=== PATIENT | female | born 1985 | race Caucasian/White ===

== ENCOUNTER 2023-05-12 13:02 | Emergency (ER) | payer BC, SELFPAY ==
[2023-05-12 13:21] VITALS: BP 132/79; PULSE 84; RESP 18; TEMP 36.1; O2SAT 97
--- NOTE | 2023-05-12 14:20 | ED.URI ---
HPI - URI/Sore Throat General Chief Complaint: Upper Respiratory Infection Stated Complaint: cough,bodyaches Time Seen by Provider: 05/12/23 14:10 Source: patient and RN notes reviewed Mode of arrival: ambulatory Limitations: no limitations History of Present Illness HPI Narrative: Patient presents today complaining of cough since last night with body aches and sore throat that started this morning. Denies fever shortness of breath. She has tried Mucinex and ibuprofen without much relief. History of asthma. Smokes half pack per day. States she was exposed to COVID-19 at work. Related Data Home Medications Medication Instructions Recorded Confirmed dextroamphetamine-amphetamine ER 20 mg PO DAILY 05/12/23 05/12/23 20 mg 24hr capsule,extend release hydroxyzine HCl 25 mg tablet 25 mg PO DAILY 05/12/23 05/12/23 Allergies Allergy/AdvReac Type Severity Reaction Status Date / Time codeine Allergy Unknown Verified 05/12/23 13:29 tioconazole Allergy Unknown Verified 05/12/23 13:29 [From Monistat 1 (tioconazole)] Review of Systems Review of Systems: CONSTITUTIONAL: Denies fever, chills, or sweats.+ body aches EYES: Denies visual changes, redness, or discharge. ENT: Denies rhinorrhea, congestion, or otalgia.+ sore throat CARDIOVASCULAR: Denies chest pain, palpitations, or edema. RESPIRATORY: Denies dyspnea.+ cough GASTROINTESTINAL: Denies abdominal pain, nausea, vomiting, or diarrhea. GENITOURINARY: Denies dysuria or hematuria. SKIN: Denies rash, itching, or wounds. MUSCULOSKELETAL: Denies back pain, joint pain, or myalgia. NEUROLOGIC: Denies headache, numbness, tingling, or weakness. PSYCH: Denies depression or anxiety. PMFSH Social History Social History (Updated 05/12/23 @ 14:22 by Mirna Colunga, [facility], ) Smoking packs per day: 0.5 Smoking cigarettes per day: 10.0 Smoking status: Current every day smoker Tobacco type: cigarettes Comments At time of signature, I have reviewed and agree with nursing past medical, surgical, social and family history unless otherwise noted. Please see nursing chart for further information. There is no relevant family history pertinent to the presenting complaint Exam Narrative: GENERAL: Mildly ill-appearing, well-nourished, and in no acute distress. HEAD: Normocephalic, atraumatic. EYES: EOMI. No redness or drainage. Conjunctivae normal. ENT: Mucous membranes pink and moist. Nares clear. No rhinorrhea. TMs normal bilaterally. Throat normal. Uvula midline. NECK: Normal AROM. Supple. No lymphadenopathy. CHEST: No respiratory distress. Clear to auscultation. HEART: Regular rate and rhythm. No murmur appreciated. EXTREMITIES: Normal range of motion. No edema. SKIN: Warm, dry, no rash. Capillary refill normal. Normal skin turgor. NEURO: No focal deficits. Alert and oriented x3. Gait steady. PSYCH: Normal affect. No signs of depression or anxiety. Course Course Level of Care: Express Care Visit Vital Signs Vital signs: Vital Signs Temperature 97.0 F L 05/12/23 13:21 Pulse Rate 84 05/12/23 13:21 Respiratory Rate 18 05/12/23 13:21 Blood Pressure 132/79 05/12/23 13:21 Pulse Oximetry 97 05/12/23 13:21 Oxygen Delivery Room Air 05/12/23 13:21 Temperature 97.0 F L 05/12/23 13:21 Pulse Rate 84 05/12/23 13:21 Respiratory Rate 18 05/12/23 13:21 Blood Pressure 132/79 05/12/23 13:21 Pulse Oximetry 97 05/12/23 13:21 Oxygen Delivery Room Air 05/12/23 13:21 Reviewed MDM - URI/Sore Throat MDM Narrative Medical decision making narrative: COVID-19 and influenza negative. Symptoms likely viral in etiology. Discussed [id number] treatment for symptoms. No prescription medications indicated at this time. Anticipatory guidance given. Differential Diagnosis Differential diagnosis: Likely upper respiratory infection, viral infection, influenza and other (COVID-19) Lab Data Attestation: I revi
== END 2023-05-12 14:47 | disposition home or self-care (01) ==
PROVIDERS: Emergency Provider Nurse Practitioner
DX: B34.9 Viral infection, unspecified (principal); Z20.822 Contact with and (suspected) exposure to COVID-19; F17.210 Nicotine dependence, cigarettes, uncomplicated; J45.909 Unspecified asthma, uncomplicated
CPT/HCPCS: 87426; 87804; 99203; C9803; G0463

== ENCOUNTER → 2023-05-15 17:49 | Outpatient (CLI) | payer BC, SELFPAY ==
--- NOTE | ~2023-05-15 | XR_ITS ---
EXAMINATION: XR chest 2V DATE: 05/15/2023 18:11 INDICATION: Cough and wheezing. TECHNIQUE: Frontal and lateral views of the chest were obtained. COMPARISON: None. FINDINGS: There is no pneumonia, pleural effusion, or pneumothorax. The heart size is normal. IMPRESSION: 1. No acute cardiopulmonary disease. Reviewed, dictated and finalized at location E. ST[facility] TECHNICIAN
== END ==
LOC: EXPTRAD 17:50
PROVIDERS: PCP Emergency Medicine; Visit Provider Emergency Medicine
DX: R05.9 Cough, unspecified (principal); R06.2 Wheezing
CPT/HCPCS: 71046